=== PATIENT | female | born 1945 | race Caucasian/White ===

== ENCOUNTER 2017-08-22 09:26 | Inpatient (IN) | payer OTHER ==
[~2017-08-22] VITALS: Ht 162.6 cm; Wt 76.4 kg
[2017-08-22] MEDS ORDERED: DYAZIDE1 CAP PO (09:39)
[2017-08-22] MEDS ORDERED: COREG12.5 MG PO (09:39)
[2017-08-22] MEDS ORDERED: EPZICOM1 TAB (09:39)
[2017-08-22] MEDS ORDERED: ESTRACE0.5 MG PO (09:40)
[2017-08-22] MEDS ORDERED: LIPI20 PO (09:40)
[2017-08-22] MEDS ORDERED: ZANTAC 300300 MG PO (09:40)
[2017-08-22] MEDS ORDERED: PLA75 PO (09:40)
[2017-08-22] MEDS ORDERED: PROTONIX40 MG PO (09:40)
[2017-08-22] MEDS ORDERED: BAYER ASPIRIN R81 MG PO (09:41)
[2017-08-22 11:00] LABS: PLATELET COUNT 161 x10^3mcL (130-400)
[2017-08-22 11:06] LABS: CALCIUM 9.1 mg/dL (8.5-10.1); CARBON DIOXIDE 30.7 mmol/L (21-32); CHLORIDE SERUM 105 mmol/L (98-107); CREATININE SERUM 0.9 mg/dL (0.6-1.0); GLUCOSE SERUM 111 mg/dL (74-106); POTASSIUM SERUM 3.6 mmol/L (3.5-5.1); SODIUM SERUM 142 mmol/L (136-145)
[2017-08-22 11:10] LABS: ALBUMIN 3.9 g/dL (3.4-5.0); ALKALINE PHOSPHATASE 64 U/L (46-116); ALT/SGPT 23 U/L (14-59); AMYLASE 54 U/L (25-115); AST/SGOT 18 U/L (15-37); BILIRUBIN TOTAL 0.54 mg/dL (0.20-1.00); LIPASE 106 IU/L (73-393); TOTAL PROTEIN, SERUM 7.9 g/dL (6.4-8.2)
[2017-08-22 11:14] LABS: BASOPHIL % 0 % (0-2); RED CELL DISTRIBUTION WIDTH 16.3 % (11.5-14.5)
[2017-08-22 12:41] VITALS: BP 188/74
[2017-08-22 14:10] VITALS: BP 142/66
[2017-08-22 14:22] VITALS: BP 188/74
[2017-08-22 14:45] LABS: MAGNESIUM 2.2 mg/dL (1.8-2.4); PHOSPHOROUS 3.3 mg/dL (2.5-4.9)
[2017-08-22 14:50] LABS: T3 TOTAL 0.97 ng/mL
[2017-08-22 15:43] LABS: FREE T4 0.89 ng/dL (0.76-1.46); FREE THYROXINE INDEX 2.4 ug/dL (1.4-4.5); T4(THYROXINE) 7.6 ug/dL (4.7-13.3)
[2017-08-22 16:00] VITALS: BP 107/58
[2017-08-22 16:41] VITALS: Ht 162.6 cm; Wt 76.4 kg
[2017-08-22 20:58] LABS: microscopic required? NO
[2017-08-22 21:26] VITALS: BP 113/64
[2017-08-22 21:34] LABS: urine erythrocyte NEGATIVE (NEGATIVE)
[2017-08-23 05:26] LABS: BASOPHIL % 0.4 % (0-2); PLATELET COUNT 130 x10^3mcL (130-400)
[2017-08-23 05:28] LABS: RED CELL DISTRIBUTION WIDTH 16.4 % (11.5-14.5)
[2017-08-23 05:36] LABS: CALCIUM 8.7 mg/dL (8.5-10.1); CARBON DIOXIDE 32.2 mmol/L (21-32); CHLORIDE SERUM 105 mmol/L (98-107); CREATININE SERUM 0.9 mg/dL (0.6-1.0); GLUCOSE SERUM 107 mg/dL (74-106); MAGNESIUM 2.2 mg/dL (1.8-2.4); PHOSPHOROUS 3.9 mg/dL (2.5-4.9); POTASSIUM SERUM 3.8 mmol/L (3.5-5.1); SODIUM SERUM 142 mmol/L (136-145)
[2017-08-23 05:55] VITALS: BP 146/85
[2017-08-23 09:31] VITALS: BP 113/58
[2017-08-23 14:00] VITALS: BP 141/56
[2017-08-23 17:09] VITALS: BP 151/65
[2017-08-23 18:40] VITALS: BP 107/52
[2017-08-23 21:54] VITALS: BP 103/50
[2017-08-24 05:07] VITALS: BP 139/45
[2017-08-24 06:14] LABS: BASOPHIL % 0.3 % (0-2); PLATELET COUNT 133 x10^3mcL (130-400)
[2017-08-24 06:35] LABS: CALCIUM 8.4 mg/dL (8.5-10.1); CARBON DIOXIDE 32.3 mmol/L (21-32); CHLORIDE SERUM 103 mmol/L (98-107); CREATININE SERUM 0.9 mg/dL (0.6-1.0); GLUCOSE SERUM 95 mg/dL (74-106); PHOSPHOROUS 4.1 mg/dL (2.5-4.9); POTASSIUM SERUM 3.3 mmol/L (3.5-5.1); SODIUM SERUM 142 mmol/L (136-145)
[2017-08-24 06:40] LABS: RED CELL DISTRIBUTION WIDTH 16.4 % (11.5-14.5)
[2017-08-24 08:34] VITALS: BP 131/58
[2017-08-24 17:06] VITALS: BP 130/54
[2017-08-24 20:51] VITALS: BP 105/44
[2017-08-25 05:45] VITALS: BP 128/62
[2017-08-25 07:25] LABS: BASOPHIL % 0.5 % (0-2)
[2017-08-25 07:27] LABS: PLATELET COUNT 120 x10^3mcL (130-400); RED CELL DISTRIBUTION WIDTH 15.9 % (11.5-14.5)
[2017-08-25 07:43] LABS: CALCIUM 8.7 mg/dL (8.5-10.1); CARBON DIOXIDE 29.6 mmol/L (21-32); CHLORIDE SERUM 104 mmol/L (98-107); CREATININE SERUM 0.9 mg/dL (0.6-1.0); GLUCOSE SERUM 102 mg/dL (74-106); POTASSIUM SERUM 3.7 mmol/L (3.5-5.1); SODIUM SERUM 140 mmol/L (136-145)
[2017-08-25 09:56] VITALS: BP 105/35
[2017-08-25] MEDS ORDERED: FLE10 PO (10:36)
[2017-08-25 11:05] VITALS: BP 131/78
== END 2017-08-25 12:45 | disposition home or self-care (01) | DRG 537 ==
LOC: ED 09:26 → DU 11:20
PROVIDERS: Emergency Medicine; ADMIT Family Medicine Sports Medicine
DX: S76.011A Strain of muscle, fascia and tendon of right hip, initial encounter (principal); I50.43 Acute on chronic combined systolic (congestive) and diastolic (congestive) heart failure; I11.0 Hypertensive heart disease with heart failure; M54.31 Sciatica, right side; I16.0 Hypertensive urgency; R73.03 Prediabetes; E78.5 Hyperlipidemia, unspecified; Z68.28 Body mass index [BMI] 28.0-28.9, adult; Z86.74 Personal history of sudden cardiac arrest; Z95.1 Presence of aortocoronary bypass graft; Z95.5 Presence of coronary angioplasty implant and graft; Z79.02 Long term (current) use of antithrombotics/antiplatelets; Z79.82 Long term (current) use of aspirin; X50.0XXA Overexertion from strenuous movement or load, initial encounter; Y93.E9 Activity, other interior property and clothing maintenance; Y92.009 Unspecified place in unspecified non-institutional (private) residence as the place of occurrence of the external cause
CPT/HCPCS: 82962; 83880; 84439; 90658; 97110-GP; 97530-GP; A9500; J1644; J2270; J2405; J2785; J7030; Q0092